=== PATIENT | male | born 1985 | race Caucasian/White ===

== ENCOUNTER → 2019-01-30 10:51 | Outpatient (CLI) | payer MEDICARE, MEDICAID, SELFPAY ==
[2019-01-30 11:25] LABS: Hematocrit 44.8 % (40-54); Hemoglobin 15.6 g/dL (13.0-16.5); Mean Corp Hgb Conc 34.8 g/dL (32-36); Mean Corpuscular Volume 89.1 fL (80-94); Mean Platelet Vol. 10.2 fl (6.2-12.0); Platelet Count 222 K/mm3 (150-450); RBC Distribution Width CV 12.5 % (11.6-14.6); RBC Distribution Width SD 40.6 fl (35.1-43.9); Red Blood Count 5.03 M/mm3 (4.6-6.2); White Blood Count 7.5 K/mm3 (4.4-11.0)
[2019-01-30 11:52] LABS: Carbamazepine (Tegretol) 5.6 ug/mL (4.0-12.0)
[2019-01-30 11:54] LABS: ALB/GLOB Ratio 1.1 RATIO (0.9-2.4); AST(SGOT) 23 U/L (15-37); Alanine Aminotransfer ALT/SGPT 50 U/L (16-61); Albumin, Serum 3.9 g/dL (3.2-5.0); Alkaline Phosphatase 75 U/L (45-117); Anion Gap 5 (5-15); BUN 12 mg/dL (7-18); Calcium,Total 8.8 mg/dL (8.5-10.1); Chloride 108 mmol/L (98-107); Creatinine, Serum 0.86 mg/dL (0.70-1.30); EST Glomerular Filtration Rate 110 mL/min (>60); Est Glom Filt Rate - Afr Amer 133 mL/min (>60); Globulin 3.7 g/dL (2.2-4.2); Glucose 106 mg/dL (74-106); Potassium 4.2 mmol/L (3.5-5.1); Protein, Total 7.6 g/dL (6.4-8.2); Sodium Level 139 mmol/L (136-145)
== END ==
PROVIDERS: Family Provider Nurse Practitioner Family; PCP Nurse Practitioner Family; Referring Provider Psychiatry & Neurology Neurology; Visit Provider Psychiatry & Neurology Neurology
DX: G40.909 Epilepsy, unspecified, not intractable, without status epilepticus (principal)
CPT/HCPCS: 36415; 80053; 80156; 85027

== ENCOUNTER 2020-01-17 06:47 | Emergency (ER) | payer MEDICARE, MEDICAID, SELFPAY ==
[2020-01-17 06:47] VITALS: BP 131/84; PULSE 75; RESP 17; TEMP 37.1; O2SAT 97; BMI 38.2
--- NOTE | 2020-01-17 07:18 | CT_ITS ---
STUDY: CT ABDOMEN AND PELVIS WITHOUT CONTRAST REASON FOR EXAM: Male, 34 years old. Left flank pain today, hx kidney infections. RADIATION DOSAGE (If Supplied By Facility): CTDIvol = ( 23.01 ) mGy, DLP = ( 1241.72 ) mGycm TECHNIQUE: Transaxial images were obtained from the dome of the diaphragm to the symphysis pubis without oral contrast, and without intravenous contrast. Sagittal and coronal images were reconstructed. Individualized dose optimization techniques were used for this CT. COMPARISON: 2011 FINDINGS: The visualized lung bases are unremarkable. The visualized portions of the heart are within normal limits. Normal liver. There are multiple gallstones. Normal spleen. Normal pancreas. Normal bilateral adrenal glands. Normal right kidney. Normal left kidney. Normal visualized stomach. Normal small intestine. Retained stool noted throughout the colon. The appendix is visualized and appears normal. Appendix best seen on coronal recon images 71 through 74 Normal abdominal aorta. Normal inferior vena cava. Normal retroperitoneum. Normal urinary bladder. Normal abdominal wall. Normal osseous structures. CT/Abdomen/Pelvis without Cont IMPRESSION: Cholelithiasis, no CT evidence of acute cholecystitis No obstructive uropathy Retained stool noted throughout the colon Normal appendix visualized No free intraperitoneal fluid, air, or suspicious adenopathy Electronically Signed: Loki Lovelace MD at 8:25 EST , Service support ,
--- NOTE | 2020-01-17 07:33 | ED.VIS.GI ---
History of Present Illness Chief Complaint: Abd Pain Narrative: Patient presenting for evaluation secondary to flank pain. Patient reports of the course of the last couple of weeks, but more so in the last couple of days he has been dealing with a left-sided abdominal pain. He reports that it will come and go, and it is not alleviated by [id number] analgesics. Not necessarily changed by position or palpation. Patient is concerned because he has had a kidney infection in the past, although he does not have any urinary signs or symptoms currently. He denies any objective fevers. He denies any nausea or vomiting. He thought that it was gas pain, so he took some Pepto-Bismol and did have some mild improvement from this. No history of abdominal surgeries. Patient does have an underlying history of seizures. Review of systems otherwise negative. Past Medical History - Allergies and Home Meds Allergies/Adverse Reactions: Allergies No Known Allergies Allergy (Verified 01/17/20 06:50) Primary Care Physician: Megan Lomax NP, [facility] [Primary Care Provider] - Smoking Status: Current every day smoker Review of Systems General: Denies: Chills, Fever, Sweats Eyes: Denies: Visual changes - bilaterally, Diplopia ENT: Denies: Rhinorrhea, Sore throat Cardiovascular: Denies: Chest pain, Palpitations Respiratory: Denies: Dyspnea, Cough, Dyspnea on exertion Gastrointestinal: Reports: Abdominal pain Genitourinary: Denies: Dysuria, Hematuria, Frequency Musculoskeletal: Denies: Back pain, Extremity Pain Skin: Denies: Rash, Wounds Neurological: Denies: Headache, Weakness, Numbness Physical Exam Vital Signs/Narrative: Vital Signs Temp Pulse Resp BP Pulse Ox 01/17/20 06:47 98.7 F 75 17 131/84 H 97 Inital Vital Signs reviewed: Yes General: Well nourished, Well developed, Obese, No Acute Distress Head: Normocephalic, Atraumatic Eyes: Perrl, EOMI ENT: Moist mucous membranes, No rhinorrhea Neck: Supple, Nontender Cardiovascular: Regular rate, Regular rhythm, No murmurs Respiratory: No distress, CTA bilaterally, Chest nontender Abdomen: Soft, Nondistended, Normal bowel sounds, Tender - Very mild reproduction of tenderness over the patient's left side of his abdomen no guarding or rebound, no flank tenderness to percussion Back: Nontender, Normal Inspection Extremities: Nontender, No edema Skin: Normal color, No rash Neurological: Alert, Oriented x3, Cranial nerves II-XII grossly intact, Normal Strength, Normal Sensation Psychological: Normal affect, Normal Mood Diagnostic/Tx/Re-eval - Medical Decision Making Patient presented secondary to abdominal pain. Urinalysis was found to be negative. CT abdomen and pelvis demonstrates no acute obstructive or inflammatory process, does not show kidney stones, did demonstrate the patient to have a increased stool burden. Patient will be administered Colace and Bentyl in the emergency department. Will be discharged with a course of the same. Patient was discharged in stable condition. ED Disposition - Plan for ED Patient: Disposition: Home or Assisted Living Diagnosis: Constipation Instructions: ED Constipation Prescriptions: Dicyclomine HCl [Bentyl] 20 mg PO TIDAC #20 cap Prescription Printed Docusate Sodium [Colace] 100 mg PO DAILY #20 cap Prescription Printed Referrals: Megan Lomax [facility], [facility] [Primary Care Provider] - 1 Week
[2020-01-17 08:22] LABS: Red Blood Cells-Urine 0 SEEN /hpf (0-5); White Blood Cells 0 SEEN /hpf (0-5)
[2020-01-17 08:27] LABS: Color, Urine Yellow (Yellow); Glucose, Dipstick Normal (Normal); Ketone-Dipstick 5 mg/dl (Negative); Leukocyte Esterase-Dipstick Negative /ul (Negative); Nitrite-Dipstick Negative (Negative); Occult Blood-Urine Negative /ul (Negative); Protein-Dipstick 30 mg/dl (Negative); Specific Gravity, Urine 1.025 (1.002-1.030); Urine Bilirubin Dipstick Negative (Negative); Urine Clarity Clear (Clear); Urine Urobilinogen 1 mg/dl (Normal)
[2020-01-17 08:35] LABS: Bacteria RARE /hpf (None Seen); Mucous, Urine 1+ /hpf (<or=2+); Squamous Epithelial Cells - UA 0-5 SEEN /hpf (0-5)
[2020-01-17] MEDS: Docusate Sodium 100 MG Capsule PO (09:38)
[2020-01-17] MEDS: Dicyclomine 10 MG Capsule 20 MG PO (09:38)
[2020-01-17 09:40] VITALS: BP 134/67; PULSE 82; RESP 18
== END 2020-01-17 09:42 | disposition home or self-care (01) ==
PROVIDERS: Emergency Provider Emergency Medicine; PCP Nurse Practitioner Family
DX: K59.00 Constipation, unspecified (principal); K80.20 Calculus of gallbladder without cholecystitis without obstruction; F17.200 Nicotine dependence, unspecified, uncomplicated; E66.9 Obesity, unspecified; Z68.38 Body mass index [BMI] 38.0-38.9, adult
CPT/HCPCS: 74176; 81001; 99283

== ENCOUNTER → 2020-05-06 09:55 | Outpatient (CLI) | payer MEDICARE, MEDICAID, SELFPAY ==
[2020-05-01 13:46] VITALS: BMI 35.2
[2020-05-06 10:52] LABS: Hematocrit 45.2 % (40-54); Mean Corp Hgb Conc 33.2 g/dL (32-36); Mean Corpuscular Hgb 31.2 pg (27.0-32.0); Mean Platelet Vol. 10.5 fl (6.2-12.0); Platelet Count 200 K/mm3 (150-450); RBC Distribution Width CV 12.9 % (11.6-14.6); RBC Distribution Width SD 44.7 fl (35.1-43.9); Red Blood Count 4.81 M/mm3 (4.6-6.2); White Blood Count 5.8 K/mm3 (4.4-11.0)
[2020-05-06 11:20] LABS: Carbamazepine (Tegretol) 6.8 ug/mL (4.0-12.0)
[2020-05-06 11:22] LABS: ALB/GLOB Ratio 1.1 RATIO (0.9-2.4); AST(SGOT) 20 U/L (15-37); Alanine Aminotransfer ALT/SGPT 42 U/L (16-61); Albumin, Serum 3.9 g/dL (3.2-5.0); Alkaline Phosphatase 80 U/L (45-117); Anion Gap 4 (5-15); BUN 12 mg/dL (7-18); BUN/Creat Ratio 13.7 RATIO (10-20); Calcium,Total 9.2 mg/dL (8.5-10.1); Chloride 108 mmol/L (98-107); Creatinine, Serum 0.88 mg/dL (0.70-1.30); EST Glomerular Filtration Rate 107 mL/min (>60); Est Glom Filt Rate - Afr Amer 129 mL/min (>60); Globulin 3.7 g/dL (2.2-4.2); Glucose 105 mg/dL (74-106); Potassium 4.1 mmol/L (3.5-5.1); Protein, Total 7.6 g/dL (6.4-8.2); Sodium Level 140 mmol/L (136-145)
== END ==
PROVIDERS: Referring Provider Psychiatry & Neurology Neurology; Visit Provider Psychiatry & Neurology Neurology
DX: G40.909 Epilepsy, unspecified, not intractable, without status epilepticus (principal)
CPT/HCPCS: 36415; 80053; 80156; 85027

== ENCOUNTER → 2022-03-10 | Outpatient (CLI) | payer MEDICARE, MEDICAID, SELFPAY ==
--- NOTE | 2022-03-10 10:08 | RAD_ITS ---
STUDY: X-RAY - LUMBAR SPINE REASON FOR EXAM: Male, 36 years old. PAIN TECHNIQUE: 3 view(s) of the lumbar spine were obtained. COMPARISON: None FINDINGS: There is straightening of the normal lumbar lordosis. There is a minimal levoscoliosis of the lumbar spine. There is a normal alignment of the vertebrae. Anterior spondylosis and disc space narrowing at the L2-L3 level. This space narrowing at the L4-L5 and L5-S1 levels. 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 The soft tissue structures are unremarkable. RAD/Lumbar Spine 2 or 3 Views IMPRESSION: Degenerative changes of the spine, as detailed above. Straightening of the normal lumbar lordosis. 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 Electronically Signed: Moises Vu MD at 15:45 EST ,
--- NOTE | 2022-03-10 10:08 | RAD_ITS ---
STUDY: X-RAY - SACROILIAC JOINTS REASON FOR EXAM: Male, 36 years old. LOW BACK PAIN TECHNIQUE: 3 view(s) of the sacroiliac joints were obtained. COMPARISON: None. FINDINGS: Normal bilateral sacroiliac joints. Normal visualized sacral ala and sacrum. Normal visualized iliac bones. Normal visualized soft tissue structures. RAD/S-I Jts 3 or More Views IMPRESSION: Normal x-ray examination of the bilateral sacroiliac joints. Electronically Signed: Moises Vu MD at 15:45 EST ,
[2022-03-10 11:21] LABS: Cholesterol 149 mg/dL (200); High Density Lipoprotein 31 mg/dL; Triglycerides 353 mg/dL; Very Low Density Lipoprotein 71 mg/dL (5-40)
[2022-03-10 11:26] LABS: Hemoglobin A1c 5.5 % (3.8-5.6)
== END | disposition home or self-care (01) ==
PROVIDERS: PCP Nurse Practitioner Family; Referring Provider Nurse Practitioner Family; Visit Provider Nurse Practitioner Family
DX: Z02.83 Encounter for blood-alcohol and blood-drug test (principal); E78.5 Hyperlipidemia, unspecified; R73.03 Prediabetes; M54.50 Low back pain, unspecified
CPT/HCPCS: 36415; 72100; 72202; 80061; 83036

== ENCOUNTER → 2022-04-08 | Outpatient (CLI) | payer MEDICARE, MEDICAID, SELFPAY ==
[2022-04-08 12:10] LABS: Hemoglobin 14.5 g/dL (13.0-16.5); Mean Corp Hgb Conc 34.5 g/dL (32-36); Mean Corpuscular Hgb 31.4 pg (27.0-32.0); Mean Corpuscular Volume 90.9 fL (80-94); Mean Platelet Vol. 10.6 fl (6.2-12.0); Platelet Count 230 K/mm3 (150-450); RBC Distribution Width CV 12.3 % (11.6-14.6); RBC Distribution Width SD 40.6 fl (35.1-43.9); Red Blood Count 4.62 M/mm3 (4.6-6.2); White Blood Count 7.9 K/mm3 (4.4-11.0)
[2022-04-08 12:44] LABS: ALB/GLOB Ratio 1.2 RATIO (0.9-2.4); AST(SGOT) 16 U/L (15-37); Alanine Aminotransfer ALT/SGPT 33 U/L (16-61); Alkaline Phosphatase 71 U/L (45-117); Anion Gap 8 (5-15); BUN 13 mg/dL (7-18); BUN/Creat Ratio 14.9 RATIO (10-20); Calcium,Total 8.7 mg/dL (8.5-10.1); Chloride 109 mmol/L (98-107); Creatinine, Serum 0.87 mg/dL (0.70-1.30); EST Glomerular Filtration Rate 106 mL/min (>60); Est Glom Filt Rate - Afr Amer 129 mL/min (>60); Globulin 3.4 g/dL (2.2-4.2); Glucose 110 mg/dL (74-106); Potassium 3.7 mmol/L (3.5-5.1); Protein, Total 7.4 g/dL (6.4-8.2); Sodium Level 141 mmol/L (136-145)
== END | disposition home or self-care (01) ==
PROVIDERS: PCP Nurse Practitioner Family; Referring Provider Psychiatry & Neurology Neurology; Visit Provider Psychiatry & Neurology Neurology
DX: G40.909 Epilepsy, unspecified, not intractable, without status epilepticus (principal)
CPT/HCPCS: 36415; 80053; 80156; 85027

== ENCOUNTER → 2023-10-17 | Outpatient (CLI) | payer MEDICARE, MEDICAID, SELFPAY ==
[2023-10-17 18:55] LABS: Carbamazepine (Tegretol) 7.1 ug/mL (4.0-12.0)
== END | disposition home or self-care (01) ==
PROVIDERS: PCP Nurse Practitioner Family; Referring Provider Psychiatry & Neurology Neurology; Visit Provider Psychiatry & Neurology Neurology
DX: G40.909 Epilepsy, unspecified, not intractable, without status epilepticus (principal)
CPT/HCPCS: 36415; 80156

== ENCOUNTER → 2024-07-03 | Outpatient (CLI) | payer MEDICARE, MEDICAID, SELFPAY ==
[2024-07-03 06:21] LABS: Hematocrit 42.2 % (40-54); Hemoglobin 14.5 g/dL (13.0-16.5); Mean Corp Hgb Conc 34.4 g/dL (32-36); Mean Corpuscular Hgb 31.1 pg (27.0-32.0); Mean Corpuscular Volume 90.6 fL (80-94); Mean Platelet Vol. 9.9 fl (6.2-12.0); Platelet Count 226 K/mm3 (150-450); RBC Distribution Width CV 12.4 % (11.6-14.6); RBC Distribution Width SD 40.8 fl (35.1-43.9); Red Blood Count 4.66 M/mm3 (4.6-6.2); White Blood Count 7.4 K/mm3 (4.4-11.0)
[2024-07-03 06:50] LABS: Carbamazepine (Tegretol) 10.3 ug/mL (4.0-12.0)
[2024-07-03 07:02] LABS: ALB/GLOB Ratio 1.7 RATIO (0.9-2.4); AST(SGOT) 28 U/L (<=37); Alanine Aminotransfer ALT/SGPT 24 U/L (<=46); Albumin, Serum 4.5 g/dL (3.5-5.0); Alkaline Phosphatase 76 U/L (40-129); Anion Gap 11 (5-15); BUN 23 mg/dL (4-19); BUN/Creat Ratio 28.8 RATIO (10-20); Calcium,Total 9.5 mg/dL (7.6-11.0); Carbon Dioxide 21.7 mmol/L (21.0-32.0); Chloride 105 mmol/L (98-108); EST Glomerular Filtration Rate 117 (>60); Globulin 2.6 g/dL (2.2-4.2); Glucose 110 mg/dL (70-99); Potassium 4.2 mmol/L (3.3-5.1); Protein, Total 7.1 g/dL (5.9-8.4); Sodium Level 138 mmol/L (133-145); Total Bilirubin 0.17 mg/dL (0.00-1.30)
--- NOTE | 2024-07-03 08:39 | CPS ---
Sleep Deprived EEG x 35 minutes
== END | disposition home or self-care (01) ==
PROVIDERS: PCP Nurse Practitioner Family; Referring Provider Psychiatry & Neurology Neurology; Visit Provider Psychiatry & Neurology Neurology
DX: G40.909 Epilepsy, unspecified, not intractable, without status epilepticus (principal)
CPT/HCPCS: 36415; 80053; 80156; 85027; 95819